=== PATIENT | male | born 1965 | race Caucasian/White ===

== ENCOUNTER 2019-04-13 12:23 | Emergency (ER) | payer OTHER ==
[~2019-04-13] VITALS: Wt 104.5 kg
[~2019-04-13 12:23] MED LIST: ACET325T33 PO; APIX5TAB PO; CLO15CR1 TOP; DOXY100T2 PO; FURO-110 PO; GENT30CR TOP; IBUP-1541 PO; TEMA30CA6 PO; [UNRECOGNIZED DRUG - CODE] PO
[2019-04-13] MEDS ORDERED: MEROPENEM 1 GM/50ML(PMX) 50 ML IVPB STA (13:41)
[2019-04-13] MEDS ORDERED: VANCOMYCIN 1 GM (PMX) 250 ML IVPB ONE (14:00)
[2019-04-13] MEDS ORDERED: ONDANSETRON 4 MG INJ IV STA (14:29)
[2019-04-13] MEDS ORDERED: morphine 2 MG INJ IV STA (14:29)
[2019-04-13] MEDS ORDERED: ENOXAPARIN 60 MG/0.6 ML SYG SC STA (15:25)
[2019-04-13] MEDS ORDERED: KETOROLAC 15 MG INJ IV STA (23:35)
[2019-04-13] MEDS ORDERED: morphine 4 MG/ML VIAL IV STA (23:53)
[2019-04-13] MEDS ORDERED: morphine 4 MG/ML VIAL ONE (23:55)
[2019-04-14 01:30] VITALS: BP 141/100; PULSE 72; RESP 19
== END 2019-04-14 03:08 | disposition left against medical advice (07) ==
LOC: E/R 12:23
DX: L03.116 Cellulitis of left lower limb (principal); L03.115 Cellulitis of right lower limb; I82.4Z3 Acute embolism and thrombosis of unspecified deep veins of distal lower extremity, bilateral; Z87.891 Personal history of nicotine dependence
CPT/HCPCS: 80048; 85025; 87040; 93970; 96365; 96366; 96367; 96372; 96375; 96376; J1650; J1885; J2185; J2270; J2405; J3370; Z7502; Z7610